=== PATIENT | male | born 1950 | race Caucasian/White ===

== ENCOUNTER 2020-08-13 06:02 | Day surgery (SDC) | payer MEDICARE, BC, OTHER ==
[2020-08-13] MEDS ORDERED: Lactated Ringers 1,000 ML IV SCH (07:00)
[2020-08-13] MEDS ORDERED: DIPRIVAN 200 MG/20 ML IV ONE (07:54)
--- NOTE | 2020-08-13 08:44 | OP ---
SURGERY DATE/TIME: 08/13/2020 0802 PREOPERATIVE DIAGNOSES: 1) Abdominal pain. 2) Nausea and vomiting. POSTOPERATIVE DIAGNOSIS: Moderate gastritis. PROCEDURE: EGD. SURGEON: Chavez Dougherty M.D. ANESTHESIA: MAC by Gordon Sterling CRNA. ESTIMATED BLOOD LOSS: Minimal. SPECIMENS: Two cold forceps biopsies from the gastric antrum. DESCRIPTION OF PROCEDURE: After informed written consent was obtained, the patient was taken to the endoscopy suite. He was placed in left lateral decubitus position and a bite block inserted. Anesthesia was titrated to the desired level of consciousness and the endoscope was inserted into the posterior oropharynx. Under direct visualization the esophagus was easily traversed. There were no obvious lesions or defects. Upon entering the gastric cavity, there was normal rugated gastric mucosa free of any lesions or defects. In the area of the antrum, there was some moderate gastritis-type changes with no active bleeding or obvious ulcerations although there was an area that appeared to be a healed previous ulceration. The pylorus was traversed and the duodenum had no ulcerations or obvious mucosal abnormalities. Two cold forceps biopsies were taken from the gastric antrum and sent for Helicobacter pylori testing with minimal blood loss. Upon withdrawal again the gastric mucosa, gastroesophageal junction and esophageal mucosa all appeared to be within normal limits. The scope was removed and the patient was transferred to the recovery room in good condition. He will follow up in a week for pathology results.
[2020-08-13 09:09] VITALS: BP 151/79; PULSE 49; O2SAT 98
== END 2020-08-13 09:10 | disposition home or self-care (01) ==
LOC: SDC 06:02
PROVIDERS: ATTEND Family Medicine
DX: K29.70 Gastritis, unspecified, without bleeding (principal); R10.9 Unspecified abdominal pain; R11.2 Nausea with vomiting, unspecified; I10 Essential (primary) hypertension; Z86.79 Personal history of other diseases of the circulatory system; Z79.899 Other long term (current) drug therapy
CPT/HCPCS: J2704